=== PATIENT | female | born 1975 | race Caucasian/White ===

== ENCOUNTER → 2020-09-28 | Day surgery (SDC) | payer MEDICAID ==
[~2020-09-28] MED LIST: Acetaminophen/oxyCODONE 325-5 MG Tab PO PRN; Dexamethasone 4 MG/ML SDV ONE; Glycopyrrolate 0.2 MG/ML SDV ONE; HYDROmorphone 1 MG/ML Syringe ONE; Ketamine 200 MG/20 ML MDV ONE; Ketorolac 30 MG/ML SDV ONE; Lactated Ringers 1,000 ML IV SCH; Lidocaine 2% 5 ML SDV ONE; Midazolam 1 MG/ML 2 ML SDV ONE; Morphine 4 MG/ML VIAL IV PRN; Neostigmine Methylsulfate 10 MG/10 ML MDV ONE; Ondansetron 4 MG/2 ML SDV IVPUSH PRN; Ondansetron 4 MG/2 ML SDV ONE; Propofol 200 MG/20 ML SDV ONE; Rocuronium 50 MG/5 ML Vial ONE; Sodium Chloride 0.9% 10 ML Syringe FLUSH PRN; Succinylcholine 200 MG/10 ML MDV ONE; ceFAZolin 1 GM Vial IVPUSH ONE; ceFAZolin 1 GM Vial ONE; fentaNYL 100 MCG/2 ML SDV ONE
--- NOTE | 2020-09-28 17:53 | OR ---
DATE OF OPERATION: 09/28/2020 PREOPERATIVE DIAGNOSIS: CHRONIC CHOLECYSTITIS, CHOLELITHIASIS. POSTOPERATIVE DIAGNOSIS: CHRONIC CHOLECYSTITIS, CHOLELITHIASIS. SURGEON: Jax Castellanos MD PROCEDURE: LAPAROSCOPIC CHOLECYSTECTOMY. ANESTHESIA: General. ESTIMATED BLOOD LOSS: Minimum. SPECIMEN: Gallbladder and stones. INDICATION FOR PROCEDURE: This 44-year-old female has a chronic right upper quadrant abdominal pain and an ultrasound shows multiple stones within the gallbladder. DESCRIPTION OF PROCEDURE: After adequate preparation, an infraumbilical incision was made and a Veress needle placed intra-abdominally for insufflation. This was then exchanged for a 5 mm trocar and laparoscope. Examination the abdomen was normal. Three other upper trocars were placed under direct vision. The gallbladder appeared to be normal, [id number], no adhesions. The cystic triangle structures were dissected free, triply clipped and divided. The gallbladder was then taken off the liver bed using cautery dissection. There was no spillage of bile or stones. The gallbladder was placed within a sterile retrieval bag and brought out through the epigastric trocar site. The right upper quadrant was irrigated with saline and suctioned clear. Cautery for hemostasis was then reinspected and this was fine. The abdomen was desufflated and the skin closed with Vicryl. BPB/MODL /[id number]
== END ==
LOC: CC.SDS 08:31
PROVIDERS: ATTEND Surgery
DX: K80.10 Calculus of gallbladder with chronic cholecystitis without obstruction (principal); F41.9 Anxiety disorder, unspecified; J45.909 Unspecified asthma, uncomplicated; J44.9 Chronic obstructive pulmonary disease, unspecified; F32.9 Major depressive disorder, single episode, unspecified; E78.00 Pure hypercholesterolemia, unspecified; M06.9 Rheumatoid arthritis, unspecified; F17.210 Nicotine dependence, cigarettes, uncomplicated; Z01.812 Encounter for preprocedural laboratory examination; Z20.822 Contact with and (suspected) exposure to COVID-19; Z91.040 Latex allergy status; Z79.899 Other long term (current) drug therapy; Z98.890 Other specified postprocedural states; Z91.030 Bee allergy status
CPT/HCPCS: 00790; J0330; J0690; J1100; J1170; J1885; J2001; J2250; J2405; J2704; J2710; J3010; J3490; J7120

== ENCOUNTER 2021-02-03 14:36 | Emergency (ER) | payer MEDICAID ==
[2021-02-03] MEDS ORDERED: Take Home: Amoxicillin/Clavulanate K 875-125 MG Tab, 2 Tab Pack PO ONE (15:04)
[2021-02-03] MEDS ORDERED: Take Home: Acetaminophen/HYDROcodone 325-5 MG, 2 Tab Pack PO ONE (15:04)
--- NOTE | 2021-02-03 15:04 | EDM.PDOC ---
ED HPI GENERAL MEDICAL PROBLEM - General Chief Complaint: Skin Complaint Stated Complaint: cat scratch possible infection Time Seen by Provider: 02/03/21 14:51 Source of Information: Reports: Patient History Limitations: Reports: No Limitations - History of Present Illness INITIAL COMMENTS - FREE TEXT/NARRATIVE: This patient is a 45 year old female that presents to the ER. Patient reports that at 4am this morning she was trying to break up a fight between cats. She reports the cat scratched her left hand. She reports now redness, swelling, pain at the site. Denies fever, vomiting, streaking or redness. Onset: Today Onset Date: 02/03/21 Onset Time: 04:00 Location: Reports: Upper Extremity, Left Front/Back Body Image: 1 - cat scratch 2 - cat scratch 3 - redness and swelling Improves with: Reports: None Worsens with: Reports: None Associated Symptoms: Denies: Confusion, Chest Pain, Cough, cough w sputum, Diaphoresis, Fever/Chills, Headaches, Loss of Appetite, Malaise, Nausea/Vomiting, Rash, Seizure, Shortness of Breath, Syncope, Weakness Left Wrist Pain Score (Numeric/FACES): 7 - Related Data Allergies Allergy/AdvReac Type Severity Reaction Status Date / Time bee venom protein (honey bee) Allergy Cannot Verified 02/03/21 14:40 Remember gabapentin Allergy Swelling Verified 02/03/21 14:40 Latex, Natural Rubber Allergy Cannot Verified 02/03/21 14:40 Remember Home Meds: Home Meds Acetaminophen [Tylenol Extra Strength] 500 mg PO Q4H PRN 09/26/20 [History] Albuterol [Ventolin HFA] 1 - 2 puff INH Q4H PRN 09/26/20 [History] Anoro Ellipta 1 puff INH DAILY PRN 09/26/20 [History] FLUoxetine HCl [Prozac] 20 mg PO DAILY 09/26/20 [History] Loratadine 10 mg PO DAILY 09/26/20 [History] atorvaSTATin Calcium [Atorvastatin Calcium] 20 mg PO DAILY 09/26/20 [History] Amoxicillin/Potassium Clav [Augmentin 875-125 Tablet] 1 each PO BID #18 tablet 02/03/21 [Rx] metHOTREXate sodium [Methotrexate] 2.5 mg PO DAILY 02/03/21 [History] Past Medical History Respiratory History: Reports: COPD Musculoskeletal History: Reports: Arthritis, Fibromyalgia - Past Surgical History GI Surgical History: Reports: Cholecystectomy Female Surgical History: Reports: Section, Tubal Ligation Social & Family History - Family History Family Medical History: No Pertinent Family History - Tobacco Use Tobacco Use Status *Q: Never Tobacco User - Caffeine Use Caffeine Use: Reports: None - Recreational Drug Use Recreational Drug Use: No ED ROS GENERAL - Review of Systems Review Of Systems: See Below Constitutional: Reports: No Symptoms. Denies: Fever, Chills HEENT: Reports: No Symptoms Respiratory: Reports: No Symptoms Cardiovascular: Reports: No Symptoms Endocrine: Reports: No Symptoms GI/Abdominal: Reports: No Symptoms Musculoskeletal: Reports: Hand Pain (left hand pain, swelling) Skin: Reports: Erythema (left dorsal hand), Wound (cat scratch superficial x2 left dorsal hand. ) Neurological: Reports: No Symptoms Psychiatric: Reports: No Symptoms Hematologic/Lymphatic: Reports: No Symptoms Immunologic: Reports: No Symptoms ED EXAM, SKIN/RASH Exam: See Below Exam Limited By: No Limitations General Appearance: Alert, WD/WN, No Apparent Distress Respiratory/Chest: No Respiratory Distress, Lungs Clear, Normal Breath Sounds, No Accessory Muscle Use Cardiovascular: Normal Peripheral Pulses, Regular Rate, Rhythm, No Edema, No Gallop, No JVD, No Murmur, No Rub Peripheral Pulses: 2+: Radial (L), Radial (R), Posterior Tibial (L), Posterior Tibial (R) Extremities: Normal Range of Motion, Increased Warmth (left dorsal hand), Redness (left dorsal hand. No streaking. Not circumferential. ), Other (Left dorsal hand swelling, redness, heat. No drainage. No fluctulance. ROM intact. Neurovascular intact. Pulses +2, cap refill < 2 sec. sensory/motor function intact. ) Neurological: Alert, Oriented, Normal Cognition, Normal Gait, No Motor/Sensory Deficits Psychiatric: Normal Affect, Normal Mood Skin: Warm, Dry, Erythema (left dorsal hand), Wound/Incision (x2 cat scratches dorsal hand) Location, Skin: Upper Extremity, Left Associated features: Warmth, Tenderness, Swelling Course - Vital Signs Last Recorded V/S: Last Vital Signs Temp 97 F 02/03/21 14:38 Pulse 66 02/03/21 14:38 Resp 18 02/03/21 14:38 BP 146/89 H 02/03/21 14:38 Pulse Ox 97 02/03/21 14:38 - Orders/Labs/Meds Orders: Active Orders 24 hr Category Date Time Status Acetaminophen/HYDROcodone [Take Home: Acetaminophen/ Med 02/03/21 15:04 Once HYDROcod, 2 Tab Pack] 3 packet PO ONETIME ONE Amoxicillin/Clavulanate K [Take Home: Amox/Clavulanate Med 02/03/21 15:04 Once 875-12, 2 Tab Pac] 2 packet PO ONETIME ONE Departure - Departure Time of Disposition: 15:00 Disposition: Home, Self-Care 01 Condition: Fair Clinical Impression: Cellulitis of hand Cat scratch of hand Qualifiers: Encounter type: initial encounter Laterality: left Qualified Code(s): S60.512A - Abrasion of left hand, initial encounter - Discharge Information *PRESCRIPTION DRUG MONITORING PROGRAM REVIEWED*: Not Applicable *COPY OF PRESCRIPTION DRUG MONITORING REPORT IN PATIENT HERNANDO: Not Applicable Prescriptions: Amoxicillin/Potassium Clav [Augmentin 875-125 Tablet] 1 each PO BID #18 tablet Instructions: Cellulitis, Adult, [id number] Referrals: PCP,None [Primary Care Provider] - Forms: ED Department Discharge Additional Instructions: Followup with your primary care provider for recheck in 2-3 days Return to the ER for worsening of redness, fever, vomiting, or any other concerns Wash the wounds twice a day with soap and water Ice to hand for swelling Motrin for pain and/or swelling Elevate hand [place] 5/325mg 1 pill every 6 hours as needed for pain as needed #6 take home Augmentin 875mg 1 pill twice a day for 10 days total #18 sent to pharmacy: #4 [facility] Sepsis Event Note (ED) - Evaluation Sepsis Screening Result: No Definite Risk - Focused Exam Vital Signs: Vital Signs Temp Pulse Resp BP Pulse Ox 02/03/21 14:38 97 F 66 18 146/89 H 97 - My Orders Last 24 Hours: My Active Orders 02/03/21 15:04 Acetaminophen/HYDROcodone [Take Home: Acetaminophen/HYDROcod, 2 Tab Pack] 3 packet PO ONETIME ONE Amoxicillin/Clavulanate K [Take Home: Amox/Clavulanate 875-12, 2 Tab Pac] 2 packet PO ONETIME ONE - Assessment/Plan Last 24 Hours: My Active Orders 02/03/21 15:04 Acetaminophen/HYDROcodone [Take Home: Acetaminophen/HYDROcod, 2 Tab Pack] 3 packet PO ONETIME ONE Amoxicillin/Clavulanate K [Take Home: Amox/Clavulanate 875-12, 2 Tab Pac] 2 packet PO ONETIME ONE Plan: PLEASE SEE RN NOTE FOR PFSH
== END 2021-02-03 15:40 | disposition home or self-care (01) ==
LOC: CC.ED 14:36
DX: S60.512A Abrasion of left hand, initial encounter (principal); L03.114 Cellulitis of left upper limb; J44.9 Chronic obstructive pulmonary disease, unspecified; Z79.899 Other long term (current) drug therapy; Z91.040 Latex allergy status; Z91.030 Bee allergy status; Z88.8 Allergy status to other drugs, medicaments and biological substances; W55.03XA Scratched by cat, initial encounter
CPT/HCPCS: 99282; A9270-GY